=== PATIENT | female | born 1985 | race Two or more races ===

== ENCOUNTER 2016-09-22 09:47 | Day surgery (SDC) | payer BC ==
--- NOTE | ~2016-09-22 | EGD ---
EGD REPORT [facility] [address] [address] NAME: MARIUM PARRA : [birth year] STATUS : REG [facility]#: [id number] AGE: 31 ADM/REG DATE : 09/22/16 MR#: [id number] REPORT SERV DATE: 09/22/16 DICTATED BY: SONDRA HURD DATE: 09/22/16 REPORT STATUS : Draft TRANSCRIBED BY: [facility] DATE: 09/22/16 Endoscopy Center Patient Name: Rosario Parra Date of : 1985 Attending MD: SONDRA HURD, Procedure Date No Time: 09/22/2016 Procedure: Colonoscopy Indications: Chronic diarrhea Referring MD: SEBASTIAN DE LA CRUZ Medicines: Monitored Anesthesia Care Complications: No immediate complications. Estimated blood loss: None. Procedure: Pre-Anesthesia Assessment: - ASA Grade Assessment: I - A normal, healthy patient. After I obtained informed consent, the scope was passed under direct vision. Throughout the procedure, the patient's blood pressure, pulse, and oxygen saturations were monitored continuously. The CF [id number] was introduced through the anus and advanced to the terminal ileum. The colonoscopy was performed without difficulty. The patient tolerated the procedure well. The quality of the bowel preparation was good. Findings: The perianal and digital rectal examinations were normal. The terminal ileum appeared normal. Normal mucosa was found in the entire colon. Biopsies were taken with a cold forceps for histology. Verification of patient identification for the specimen was done. Estimated blood loss was minimal. Internal hemorrhoids were found, and they were Grade I (internal hemorrhoids that do not prolapse). The exam was otherwise without abnormality. Impression: - The examined portion of the ileum was normal. - Normal mucosa in the entire examined colon. Biopsied. - Internal hemorrhoids. - The examination was otherwise normal. Recommendation: - Patient has a contact number available for emergencies. The signs and symptoms of potential delayed complications were discussed with the patient. Return to normal activities tomorrow. Written discharge instructions were provided to the patient. - Return to previous diet. - Continue present medications. - Await pathology results. EGD REPORT [facility] [address] [address] NAME: MARIUM PARRA : [birth year] STATUS : REG [facility] [place] PAT#: [id number] AGE: 31 ADM/REG DATE : 09/22/16 MR#: [id number] REPORT SERV DATE: 09/22/16 DICTATED BY: SONDRA HURD DATE: 09/22/16 REPORT STATUS : Draft TRANSCRIBED BY: [employer] DATE: 09/22/16 - Repeat colonoscopy at age 49 for screening purposes. Procedure Code(s): --- Professional --- 34796, Colonoscopy, flexible, proximal to splenic flexure; with biopsy, single or multiple Diagnosis Code(s): --- Professional --- K64.0, First degree hemorrhoids K52.9, Noninfective gastroenteritis and colitis, unspecified CPT copyright 2013 [employer]. All rights reserved. The codes documented in this report are preliminary and upon worm picker review may be revised to meet current compliance requirements. SONDRA HURD, 09/22/2016 1:26 PM Number of Addenda: 0 Note Initiated On: 09/22/2016 12:48 PM Scope Withdrawal Time 0 hours 9 minutes 14 seconds [id number] [id number]
--- NOTE | ~2016-09-22 | EGD ---
EGD REPORT [facility] [address] [address] NAME: MARIUM PARRA : [birth year] STATUS : REG [facility]#: [id number] AGE: 31 ADM/REG DATE : 09/22/16 MR#: [id number] REPORT SERV DATE: 09/22/16 DICTATED BY: SONDRA HURD DATE: 09/22/16 REPORT STATUS : Draft [facility]ANSCRIBED BY: [facility] DATE: 09/22/16 Endoscopy Center Patient Name: Rosario Parra Date of : 1985 Attending MD: SONDRA HURD, Procedure Date No Time: 09/22/2016 Procedure: Upper EUS Indications: Abnormal ultrasound of the abdomen Referring MD: SEBASTIAN DE LA CRUZ Medicines: Monitored Anesthesia Care Complications: No immediate complications. Estimated blood loss: None. Procedure: Pre-Anesthesia Assessment: - ASA Grade Assessment: I - A normal, healthy patient. After obtaining informed consent, the endoscope was passed under direct vision. Throughout the procedure, the patient's blood pressure, pulse, and oxygen saturations were monitored continuously. The Endoscope was introduced through the mouth, and advanced to the second part of duodenum. The GIF [id number] was introduced through the mouth, and advanced to the second part of duodenum. Findings: Endoscopic Finding : The examined esophagus was endoscopically normal. The entire examined stomach was normal. Biopsies were taken with a cold forceps for histology. Verification of patient identification for the specimen was done. Estimated blood loss was minimal. The cardia and gastric fundus were normal on retroflexion. The examined duodenum was normal. Biopsies were taken with a cold forceps for histology. Verification of patient identification for the specimen was done. Estimated blood loss was minimal. Endosonographic Finding : There was no sign of significant endosonographic abnormality in the common bile duct. The duct measured 5 mm.An unremarkable gallbladder was identified. There was no sign of significant endosonographic abnormality in the entire pancreas. The pancreas was well visualized, no pathologic lymphadenopathy, no masses, the pancreatic duct was well visualized from ampulla to tail, the pancreatic duct was regular in contour. No lymphadenopathy seen. There was no sign of significant endosonographic abnormality in the ampulla. Endosonographic images of the stomach were unremarkable. There was no sign of significant endosonographic abnormality in the EGD REPORT [place] [id number] [place]. [address] NAME: MARIUM PARRA : [birth year] [place]US : [place] [facility] [place]#: [id number] AGE: 31 ADM/REG DATE : 09/22/16 MR#: [id number] REPORT SERV DATE: 09/22/16 DICTATED BY: SONDRA HURD DATE: 09/22/16 REPORT STATUS : Draft TRANSCRIBED BY: [facility] DATE: 09/22/16 esophagus. Impression: - Normal esophagus. - Normal stomach. Biopsied. - Normal examined duodenum. Biopsied. - There was no sign of significant pathology in the common bile duct. - There was no sign of significant pathology in the entire pancreas. - There was no sign of significant pathology in the ampulla. - Endosonographic images of the stomach were unremarkable. - There was no sign of significant pathology in the esophagus. Recommendation: - Return to previous diet. - Continue present medications. - Await path results. Procedure Code(s): --- Professional --- 85358, Esophagogastroduodenoscopy, flexible, transoral; with endoscopic ultrasound examination, including the esophagus, stomach, and either the duodenum or a surgically altered stomach where the jejunum is examined distal to the anastomosis Diagnosis Code(s): --- Professional --- R93.5, Abnormal findings on diagnostic imaging of other abdominal regions, including retroperitoneum CPT copyright 2013 [employer]. All rights reserved. The codes documented in this report are preliminary and upon sales and service specialist review may be revised to meet current compliance requirements. SONDRA HURD, 09/22/2016 1:25 PM Number of Addenda: 0 Note Initiated On: 09/22/2016 12:47 PM Scope Withdrawal Time 0 hours 0 minutes 0 seconds [id number] [id number]
[~2016-09-22 09:47] MED LIST: MAGOX4 PO; VITAMIN B COMPLEX PO; VITAMIN D2000 UNIT PO
== END 2016-09-22 23:59 | disposition home health service (06) ==
LOC: DMU 09:47
PROVIDERS: Internal Medicine Gastroenterology
PROC: 0DB68ZX Excision of Stomach, Via Natural or Artificial Opening Endoscopic, Diagnostic (ICD-10-PCS; 2016-09-22)
PROC: 0DJ08ZZ Inspection of Upper Intestinal Tract, Via Natural or Artificial Opening Endoscopic (ICD-10-PCS; 2016-09-22)
PROC: BD41ZZZ Ultrasonography of Esophagus (ICD-10-PCS; 2016-09-22)
PROC: 0DBE8ZX Excision of Large Intestine, Via Natural or Artificial Opening Endoscopic, Diagnostic (ICD-10-PCS; principal; 2016-09-22 13:00)
PROC: 0DB98ZX Excision of Duodenum, Via Natural or Artificial Opening Endoscopic, Diagnostic (ICD-10-PCS; 2016-09-22 13:00)
DX: K64.0 First degree hemorrhoids (principal); K52.9 Noninfective gastroenteritis and colitis, unspecified; F41.9 Anxiety disorder, unspecified; Z98.890 Other specified postprocedural states
CPT/HCPCS: 84703; 88305; C1725